=== PATIENT | male | born 1950 | race Caucasian/White ===

== ENCOUNTER → 2017-02-24 | Outpatient (CLI) | payer OTHER ==
[2014-05-13 09:26] VITALS: BP 114/78
[~2017-02-24] MED LIST: ASPI-482 PO; ATOR20TA PO; BYSTOLIC5 MG PO; ESZO3TAB28 PO; VARD20TA2 PO
--- NOTE | 2017-02-24 14:36 | KCIC ---
2 views right foot Indication: Great toe pain. Findings: There appears to be a fracture of the distal phalanx of the great toe which is best appreciated on the oblique image. An AP projection may visualize this more clearly. No other fractures are appreciated. IMPRESSION: Fracture of the distal phalanx of the great toe. Electronically signed by: Luis Fernando Goetz MD (02/24/2017 2:33 PM)
--- NOTE | 2017-02-24 14:38 | KCIC ---
3 views of the great toe Indication: Great toe pain FINDINGS: There is a fracture through the distal phalanx of the great toe with no significant displacement. The joint spaces are well maintained. No other fractures are identified. IMPRESSION: Nondisplaced acute traumatic fracture through the distal phalanx of the great toe. Electronically signed by: Luis Fernando Goetz MD (02/24/2017 2:34 PM)
== END | disposition home or self-care (01) ==
LOC: KCIC 13:34
PROVIDERS: ATTEND Family Medicine
DX: S92.421A Displaced fracture of distal phalanx of right great toe, initial encounter for closed fracture (principal); X58.XXXA Exposure to other specified factors, initial encounter; Y93.89 Activity, other specified; Y92.89 Other specified places as the place of occurrence of the external cause; Y99.8 Other external cause status
CPT/HCPCS: 73630; 73660

== ENCOUNTER → 2017-03-26 | Outpatient (CLI) | payer MEDICARE ==
[2014-05-13 09:26] VITALS: BP 114/78
--- NOTE | 2017-03-26 10:10 | KCIC ---
Indication: Great toe fracture. Time of exam 9:50 AM Comparison is made with prior radiographs from 02/24/2017. The obliquely oriented fracture through the distal phalanx of the great toe is again noted. The fracture line remains clearly visible. Small amount of callus is noted. Alignment is anatomic. No new fracture is seen. IMPRESSION: Minimal healing of the distal phalanx of the great toe. However, the fracture line does remain clearly visible. Electronically signed by: Hima Busby MD (03/26/2017 10:07 AM) [id number]
== END | disposition home or self-care (01) ==
LOC: KCIC 09:38
PROVIDERS: ATTEND Family Medicine
DX: S92.911A Unspecified fracture of right toe(s), initial encounter for closed fracture (principal); X58.XXXA Exposure to other specified factors, initial encounter; Y93.89 Activity, other specified; Y92.89 Other specified places as the place of occurrence of the external cause; Y99.8 Other external cause status
CPT/HCPCS: 73660

== ENCOUNTER → 2017-04-22 | Outpatient (CLI) | payer MEDICARE ==
[2014-05-13 09:26] VITALS: BP 114/78
--- NOTE | 2017-04-22 10:21 | KCIC ---
EXAM: Right toes, 3 views. HISTORY: Fracture follow-up. COMPARISON: 03/26/2017 FINDINGS: Frontal, lateral and oblique views of the right toes are obtained. There is a mildly displaced fracture of the first distal phalanx. The degree of displacement is not significantly changed compared to the prior study. There is minimal sclerosis and callus formation along the fracture line compared to the prior study. There is minimal first metatarsal phalangeal spurring. IMPRESSION: 1. Minimal sclerosis and callus formation along a right first distal phalanx fracture line. 2. Minimal first metatarsophalangeal osteoarthritis. Electronically signed by: Andree Matias MD (04/22/2017 10:17 AM) [facility]
== END | disposition home or self-care (01) ==
LOC: KCIC 09:48
PROVIDERS: ATTEND Family Medicine
DX: S92.404D Nondisplaced unspecified fracture of right great toe, subsequent encounter for fracture with routine healing (principal); M19.071 Primary osteoarthritis, right ankle and foot; X58.XXXD Exposure to other specified factors, subsequent encounter
CPT/HCPCS: 73660

== ENCOUNTER → 2017-12-01 | Outpatient (CLI) | payer MEDICARE | END | disposition home or self-care (01) | LOC: KCIC 10:06 | DX: M17.12 Unilateral primary osteoarthritis, left knee (principal) | CPT/HCPCS: 73564 ==

== ENCOUNTER → 2019-01-18 | Outpatient (CLI) | payer MEDICARE ==
[2014-05-13 09:26] VITALS: BP 114/78
[~2019-01-18] MED LIST changes: +ALBU2.5V8 INH; +ASCO500T2 PO; +AZEL137S3 NS; +CARV25TA2 PO; +GLUC1CAP50 PO; +KRIL500C PO; +MULT1TAB52 PO; +OMEP20CA10 PO; +SAW/1TAB2 PO; +SULF-143 PO; +TEMA30CA PO; +WARF-78 PO
--- NOTE | 2019-01-18 08:52 | RAD ---
Left lower extremity bone length study, 01/18/2019: HISTORY: Left knee osteoarthritis, preoperative planning AP views of the left femur and lower leg were obtained with skin markers placed laterally as requested to aid in preoperative measurements. There is moderate narrowing of the medial compartment of left knee joint with mild marginal spurring. Small exostoses are noted both medially and laterally in the distal femur. Surgical clips are present in the medial soft tissues of the distal thigh and knee. Arterial calcifications are present. These limited views are otherwise unremarkable. Electronically signed by: Gumaro Tyler MD (01/18/2019 8:49 AM) [facility]
--- NOTE | 2019-01-18 12:04 | RAD ---
MR of the left knee - Perry and Nephew protocol History: Left knee osteoarthritis. Technique: Images are obtained in accordance with the standard Perry and Nephew protocol. 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 There is a partially visualized cortical medullary lesion arising from the lateral femur, compatible with an osteochondroma. Medial meniscal tear. Primary osteoarthritis. Small joint effusion. Small Mahajan's cyst. Electronically signed by: Bay Gibson MD (01/18/2019 12:01 PM) [facility]
== END | disposition home or self-care (01) ==
LOC: RAD 08:29
PROVIDERS: ATTEND Orthopaedic Surgery Sports Medicine
DX: Z01.818 Encounter for other preprocedural examination (principal); S83.242A Other tear of medial meniscus, current injury, left knee, initial encounter; M17.12 Unilateral primary osteoarthritis, left knee; I70.8 Atherosclerosis of other arteries; M89.8X8 Other specified disorders of bone, other site; M25.462 Effusion, left knee; M71.22 Synovial cyst of popliteal space [Baker], left knee; X58.XXXA Exposure to other specified factors, initial encounter; Y93.89 Activity, other specified; Y92.89 Other specified places as the place of occurrence of the external cause; Y99.8 Other external cause status
CPT/HCPCS: 73721; 77073

== ENCOUNTER → 2019-02-09 | Outpatient (CLI) | payer MEDICARE ==
[2014-05-13 09:26] VITALS: BP 114/78
[2019-02-09 09:35] LABS: BASO % 1 % (0-3); EOS # 0.1 x10^3/uL (0.0-0.7); EOS % 3 % (0-3); HEMATOCRIT 43.4 % (39.0-53.0); HEMOGLOBIN 14.7 g/dL (13.0-17.5); LYMPH # 1.4 x10^3/uL (1.0-4.8); LYMPH % 35 % (24-48); MEAN CORPUSCULAR HEMOGLOBIN 32 pg (25-35); MEAN CORPUSCULAR HGB CONC 34 g/dL (31-37); MEAN CORPUSCULAR VOLUME 95 fL (79-100); MONO # 0.5 x10^3/uL (0.0-1.1); MONO % 12 % (0-9); NEUT # 1.9 x10^3uL (1.8-7.7); NEUT % 49 % (31-73); PLATELET COUNT 169 x10^3/uL (140-400); RED BLOOD COUNT 4.54 x10^6/uL (4.30-5.70); RED CELL DISTRIBUTION WIDTH 13.7 % (11.5-14.5); WHITE BLOOD COUNT 3.9 x10^3/uL (4.0-11.0)
[2019-02-09 09:45] LABS: PROTHROMBIN TIME PATIENT 12.8 SEC (11.7-14.0)
[2019-02-09 11:13] LABS: BILIRUBIN,URINE NEGATIVE (NEG); CLARITY,URINE CLEAR; COLOR,URINE YELLOW; NITRITE,URINE NEGATIVE (NEG); PH,URINE 5.5; PROTEIN,URINE NEGATIVE (NEG-TRACE); UROBILINOGEN,URINE 0.2 mg/dL (0.2 mg/dL)
[2019-02-09 11:17] LABS: CALCIUM 9.3 mg/dL (8.5-10.1); CREATININE 1.1 mg/dL (0.7-1.3); GFR 66.6
[2019-02-09 11:26] LABS: SQUAMOUS EPITHELIAL CELL,UR FEW /LPF
[2019-02-09 11:27] LABS: BACTERIA,URINE FEW /HPF (0-FEW); RBC,URINE 0 /HPF (0-2); WBC,URINE OCC /HPF (0-4)
--- NOTE | 2019-02-09 16:53 | RAD ---
Chest, 2 views, 02/09/2019: HISTORY: Preop evaluation, hypertension There has been a previous median sternotomy. The heart size and pulmonary vascularity are normal. No pulmonary infiltrate is seen. There is no evidence of pleural fluid. IMPRESSION: No acute cardiopulmonary abnormality is detected. Electronically signed by: Gumaro Tyler MD (02/09/2019 4:50 PM) [facility]
== END | disposition home or self-care (01) ==
LOC: SURGPAT 13:05
PROVIDERS: ATTEND Orthopaedic Surgery Sports Medicine
DX: Z01.818 Encounter for other preprocedural examination (principal); M17.12 Unilateral primary osteoarthritis, left knee; I10 Essential (primary) hypertension; Z88.8 Allergy status to other drugs, medicaments and biological substances
CPT/HCPCS: 36415; 71046; 80048; 81001; 82040; 82306; 85025; 85610; 85651; 85730; 87641

== ENCOUNTER → 2019-02-26 | Outpatient (CLI) | payer MEDICARE ==
[2019-02-24 08:15] VITALS: BP 112/71
[~2019-02-26] MED LIST changes: +OXYC1TAB22 PO
== END | disposition home or self-care (01) ==
LOC: PT 14:02
PROVIDERS: ATTEND Orthopaedic Surgery Sports Medicine
DX: Z47.1 Aftercare following joint replacement surgery (principal); M25.662 Stiffness of left knee, not elsewhere classified; M62.81 Muscle weakness (generalized); R26.9 Unspecified abnormalities of gait and mobility; R26.81 Unsteadiness on feet
CPT/HCPCS: 97110

== ENCOUNTER → 2021-08-22 | Day surgery (SDC) | payer MEDICARE ==
[~2021-08-22] MED LIST changes: -ASCO500T2 PO; +ASCO500T4 PO; +DOXY100C3 PO; +HYDR-2761 PO; +HYDR2VIA IVP; +IV RINGERS,LACTATED 1000ML 1,000 ML IV SCH; +MULT-445 PO; -MULT1TAB52 PO; +MUPI22OI2 TP; -OMEP20CA10 PO; +OMEP20CA16 PO; +PROPOFOL 10 MG/ML (20ML) VIAL. IV ONE; -WARF-78 PO; +WARF5TAB2 PO
[2021-08-22 07:56] VITALS: BP 128/74
[2021-08-22 09:30] VITALS: BP 115/67
--- NOTE | 2021-08-22 12:19 | CONS ---
DATE OF CONSULTATION: 08/22/2021 UPDATED HISTORY AND PHYSICAL REFERRING PHYSICIAN: . HISTORY OF PRESENT ILLNESS: A 71-year-old male whose past medical history is significant for asthma, hyperlipidemia, hypertension as well as gastroesophageal reflux disease, is seen for interval exam. Bowel habits are regular without diarrhea or constipation. There has been no melena and/or hematochezia. Weight and appetite are stable. He is otherwise without additional complaints. PAST MEDICAL HISTORY: Asthma, hypertension, hyperlipidemia, gastroesophageal reflux disease. ALLERGIES: METOPROLOL, ZOLPIDEM. PAST SURGICAL HISTORY: Appendectomy, vasectomy, tonsillectomy, joint replacement, status post CABG. FAMILY HISTORY: Diabetes in multiple family members, CVA in multiple family members, hypertension in multiple family members. SOCIAL HISTORY: Former smoker and a social drinker. REVIEW OF SYSTEMS: Per records. PHYSICAL EXAMINATION: VITAL SIGNS: Temperature is 97, pulse 70, respirations 20. LUNGS: Clear, well healed. CARDIOVASCULAR: Midline sternal incision is noted. ABDOMEN: Revealed a soft abdomen, normal bowel sounds, without appreciable hepatosplenomegaly. CARDIAC: S1, S2, without S3, S4 or appreciable murmur. IMPRESSION: Colorectal screening is warranted at this time. Risks and benefits have been discussed with the patient and is willing to proceed. LINDSAY DR: Hany TID: [id number]
--- NOTE | 2021-08-23 17:11 | PATHOLOGY ---
[facility] Accession Number: [id number] . 01 Material submitted: . colon - ASCENDING COLON POLYP BIOPSY. Modifiers: ascending . 01 Clinical history: . CRC SCREEN COLONOSCOPY . 02 Diagnosis: Large bowel, "ascending colon polyp biopsy": - Tubular adenoma; negative for high grade dysplasia and malignancy. . (MLK:mml; 08/23/2021) [facility] 08/23/2021 1540 Local . 02 Electronically signed: . Emelina Portillo MD, Pathologist NPI- [id number] . 01 Gross description: . The specimen is received in formalin, labeled "Eliel Huggins, ascending colon polyp biopsy". Received are 2 segments of pale osorio tissue ranging in size from 0.3 to 0.4 cm in maximum dimensions. The specimen is submitted entirely in cassette A1.([facility]; 08/22/2021) [facility] 08/22/2021 1626 Local . 02 Pathologist provided ICD-10: D12.2 . 02 CPT . 317840 Specimen Comment: A courtesy copy of this report has been sent to [phone], [phone] Specimen Comment: [id number] Specimen Comment: Report sent to / DR OTERO Performed at: 01 [facility] [address], [place], [place] [id number] MD Lc Adam MD Phone: [phone] Performed at: 02 [facility] [address], [place] [id number] MD Benito Carter MD Phone: [phone]
== END | disposition home or self-care (01) ==
LOC: ENDOS 07:23
PROVIDERS: ATTEND Internal Medicine Gastroenterology
DX: Z12.11 Encounter for screening for malignant neoplasm of colon (principal); K64.0 First degree hemorrhoids; K57.30 Diverticulosis of large intestine without perforation or abscess without bleeding; D12.2 Benign neoplasm of ascending colon; K63.89 Other specified diseases of intestine; I25.10 Atherosclerotic heart disease of native coronary artery without angina pectoris; I10 Essential (primary) hypertension; I48.91 Unspecified atrial fibrillation; E11.9 Type 2 diabetes mellitus without complications; K21.9 Gastro-esophageal reflux disease without esophagitis; M19.90 Unspecified osteoarthritis, unspecified site; N40.0 Benign prostatic hyperplasia without lower urinary tract symptoms; Z87.891 Personal history of nicotine dependence; Z79.82 Long term (current) use of aspirin; Z79.84 Long term (current) use of oral hypoglycemic drugs; Z79.899 Other long term (current) drug therapy; Z98.890 Other specified postprocedural states; Z72.89 Other problems related to lifestyle; Z88.8 Allergy status to other drugs, medicaments and biological substances
CPT/HCPCS: 45380; 88305; J2704